=== PATIENT | female | born 1985 | race Caucasian/White ===

== ENCOUNTER 2017-10-22 20:19 | Emergency (ER) | payer MEDICAID ==
[~2017-10-22] VITALS: Ht 162.6 cm; Wt 66.7 kg
[2017-10-22 21:29] VITALS: BP 126/76
[2017-10-22] MEDS ORDERED: IBUPROFEN 200 MG TABLET PO ONE (21:30)
== END 2017-10-22 21:30 | disposition home or self-care (01) ==
LOC: ED 21:10
DX: M79.671 Pain in right foot (principal); M79.661 Pain in right lower leg; M25.561 Pain in right knee; M79.672 Pain in left foot
CPT/HCPCS: 99284